=== PATIENT | male | born 1965 | race Caucasian/White ===

== ENCOUNTER → 2018-08-28 | Outpatient (CLI) | payer BC ==
[2018-08-28 19:36] LABS: Influenza A Negative (NEGATIVE); Influenza B Negative (NEGATIVE)
== END | disposition home or self-care (01) ==
LOC: LAB SHORT 18:37 → LAB 18:37
PROVIDERS: Physician Assistant
DX: J11.1 Influenza due to unidentified influenza virus with other respiratory manifestations (principal)
CPT/HCPCS: 87804

== ENCOUNTER 2019-03-02 23:25 | Emergency (ER) | payer BC, OTHER ==
[~2019-03-02] VITALS: Ht 162.6 cm; Wt 102.1 kg
[2019-03-02 23:35] LABS: Calcium, Ionized (POC) 1.13 mmol/L (1.10-1.46); Chloride (POC) 106 mmol/L (98-108); Creatinine (POC) 1.4 mg/dL (0.8-1.3); Glucose (ISTAT POC) 180 mg/dL (70-99); Hemoglobin (POC) 13.9 g/dL (13.5-17.5); Sodium (POC) 139 mmol/L (135-148); Total CO2 (POC) 22 mmol/L (21-32)
[2019-03-02 23:49] LABS: PCO2 Arterial 40.7 mmHg (35-45); PO2 Arterial 287 mmHg (80-100); pH Blood Arterial 7.24 (7.35-7.45)
[2019-03-02 23:58] LABS: BASOPHILS ABSOLUTE AUTO 0.06 K/mm3 (0.00-0.23); BASOPHILS PERCENT AUTO 0 % (0-2); EOSINOPHILS ABSOLUTE AUTO 0.09 K/mm3 (0.00-0.68); EOSINOPHILS PERCENT AUTO 1 % (0-6); Hematocrit 41.9 % (37.0-53.0); Hemoglobin 13.7 g/dL (13.5-17.5); IMMATURE GRAN ABSOLUTE AUTO 0.57 K/mm3 (0.00-0.10); IMMATURE GRAN PERCENT AUTO 3 % (0-1); LYMPHOCYTES ABSOLUTE AUTO 4.03 K/mm3 (0.84-5.20); LYMPHOCYTES PERCENT AUTO 21 % (21-46); MONOCYTES ABSOLUTE AUTO 0.66 K/mm3 (0.16-1.47); MONOCYTES PERCENT AUTO 4 % (4-13); Mean Corpuscular HGB 29.1 pg (26.0-34.0); Mean Corpuscular HGB Conc 32.7 g/dL (31.5-36.5); Mean Corpuscular Volume 89 fL (80-100); Mean Platelet Volume 10.8 fL (9.1-12.4); NEUTROPHILS ABSOLUTE AUTO 13.49 K/mm3 (1.96-9.15); NEUTROPHILS PERCENT AUTO 71 % (41-73); Platelet Count 241 K/mm3 (150-400); RDW Coefficient Variation 13.1 % (11.7-14.2); RDW Standard Deviation 43.4 fL (35.1-46.3)
[2019-03-03 00:13] LABS: International Normalized Ratio 0.97; Prothrombin Time Results 10.3 Sec (9.7-11.5)
[2019-03-03 00:17] LABS: Alanine Aminotransfer (ALT/SGP 136 U/L (12-78); Albumin, Blood 3.2 g/dL (3.4-5.0); Albumin/Globulin Ratio 0.9 (0.8-1.8); Alk Phos 85 U/L (50-136); Anion Gap 12 mmol/L (6-16); Aspartate Aminotrans (AST/SGOT 131 U/L (12-37); Bilirubin, Total 0.2 mg/dL (0.1-1.0); Blood Urea Nitrogen 21 mg/dL (8-24); Bun/Creatinine Ratio 20.8 (12.0-20.0); CO2, Blood 22 mmol/L (21-32); Calcium, Blood 8.1 mg/dL (8.5-10.1); Chloride, Blood 109 mmol/L (98-108); Creatinine, Blood 1.01 mg/dL (0.60-1.20); Ethanol (Alcohol), Blood, Med 183 mg/dL; Globulin, Blood 3.5 g/dL (2.2-4.0); Glomerular Filtration Rate >60 (60-); Glucose, Blood 180 mg/dL (70-99); Sodium, Blood 143 mmol/L (136-145); Total Protein, Blood 6.7 g/dL (6.4-8.2)
== END 2019-03-03 00:10 | disposition short-term general hospital (02) ==
LOC: ER 23:25
PROVIDERS: Emergency Medicine
DX: S22.31XA Fracture of one rib, right side, initial encounter for closed fracture (principal); S00.81XA Abrasion of other part of head, initial encounter; J96.91 Respiratory failure, unspecified with hypoxia; F10.129 Alcohol abuse with intoxication, unspecified; V29.9XXA Motorcycle rider (driver) (passenger) injured in unspecified traffic accident, initial encounter
CPT/HCPCS: 31500; 36600; 51702; 70450; 71045; 72125; 72170; 80047; 80053; 82803; 83690; 85014; 85025; 85610; 85730; 86850; 86900; 86901; 94002; 96374-59; 99291-25; G0390; G0480; J2704; J3010; J7030; L0160; P9016

== ENCOUNTER → 2022-08-15 | Outpatient (CLI) | payer BC, OTHER | LOC: LAB SHORT 11:00 → LAB 11:00 | DX: R30.0 Dysuria (principal) | CPT/HCPCS: 87086 ==